=== PATIENT | female | born 1965 | race Caucasian/White ===

== ENCOUNTER 2020-07-04 20:02 | Inpatient (IN) ==
[2020-07-04] MEDS ORDERED: fentaNYL 100 MCG/2 ML VIAL IV ONE (20:22)
[2020-07-04] MEDS ORDERED: FUROSEMIDE 40 MG/4 ML VIAL IV ONE (20:23)
[2020-07-04 20:56] LABS: POC Creatinine 1.9 mg/dl (0.6-1.1)
[2020-07-04 22:15] LABS: INR 1.4 (0.9-1.1); Prothrombin Time 17.5 sec (11.9-14.5)
[2020-07-04 22:32] LABS: ALT/SGPT 50 U/l (0-40); AST/SGOT 62 U/l (0-37); Albumin 3.1 gm/dL (3.2-5.2); Albumin/Globulin Ratio 0.8 (1.0-2.3); Alkaline Phosphatase 194 U/L (39-117); Bilirubin,Total 3.5 mg/dL (0.0-1.0); Blood Urea Nitrogen 45 mg/dl (6-20); Calcium 8.5 mg/dl (8.6-10.4); Carbon Dioxide 17 mmol/L (22-30); Creatine Kinase 101 IU/L (24-170); Globulin 3.7 gm/dL (2.2-3.7); Glomerular Filtration Rate 31; Glucose 294 mg/dL (70-105)
[2020-07-04 22:32] LABS: Appearance,Urine CLEAR; Bilirubin,Urine NEG (NEG); Color,Urine AMBER; Culture Indicated,Urine NO; Glucose,Urine (UA) 50 mg/dL (NEG); Ketones,Urine NEG (NEG); Leukocyte Esterase,Urine NEG /uL (NEG); Nitrate,Urine NEG (NEG); Protein,Urine NEG (NEG); Specific Gravity,Urine 1.017 (1.000-1.035); Urine Blood NEG mg/dL (<0.03)
[2020-07-04 22:39] LABS: Chloride 87 mmol/L (96-108)
--- NOTE | 2020-07-04 22:55 | Emergency Department Note ---
HPI General Chief complaint: Rib Pain Stated complaint: sternum pain and UTI Time Seen by Provider: 07/04/20 20:07 Source: patient Mode of arrival: ambulatory Limitations: no limitations History of Present Illness HPI Narrative: Narrative: 55-year-old female with known cirrhosis liver comes in complaining of couple of issues. She was seen a week ago after a fall and concerned that she had fractured her ribs or sternum. This has not improved and now she is having some trouble breathing requiring oxygen. She is currently afebrile but she is having some confusion. I reviewed the note from that visit on 06/27/2020-her left knee was also x-rayed which was negative. She is still having some swelling at that knee. The second issue is that she was diagnosed with a UTI 2 days ago at an outside hospital-there is some concern that she is not getting better from this either. She is somnolent but arousable; somewhat confused. Her sister brought her in and corroborates her story Related Data Home Medications Medication Instructions Recorded Confirmed Cyanocobalamin 1,000 mcg IM MONTHLY 08/26/15 07/04/20 amlodipine [Norvasc] 10 mg PO DAILY 08/26/15 07/04/20 gabapentin 100 mg PO BID 08/26/15 07/04/20 metoprolol tartrate 25 mg PO BID 08/26/15 07/04/20 omeprazole [Prilosec] 40 mg PO DAILY 08/26/15 07/04/20 potassium chloride [Klor-Con M20] 20 meq PO DAILY 08/26/15 07/04/20 insulin lispro [HumaLOG] 1 unit SQ CONT 07/22/17 07/04/20 fluoxetine 40 mg PO DAILY 02/11/19 07/04/20 furosemide 40 mg PO BID 02/11/19 07/04/20 oxycodone 15 mg PO BID PRN 02/11/19 07/04/20 spironolactone 50 mg PO DAILY 02/11/19 07/04/20 Previous Rx's Medication Instructions Recorded Xifaxan 550 mg PO BID #60 tab 07/13/16 hydrocodone-acetaminophen 1 tab PO Q6HP PRN #20 tab 12/02/17 hydrocodone-acetaminophen 1 tab PO Q4H PRN #14 tab 06/27/20 Allergies Allergy/AdvReac Type Severity Reaction Status Date / Time No Known Drug Allergies Allergy Verified 07/04/20 20:08 Review of Systems ROS ROS Narrative: Narrative: All systems ED: reviewed and negative except as stated. [facility] Narrative Patient History Narrative: Narrative: Medical/Surgical/Family History All Active Problems Sepsis (Acute) Systemic inflammatory response syndrome (Acute) Acute cholecystitis (Acute) Cellulitis of right lower leg (Acute) Cellulitis (Acute) Altered mental status (Acute) Liver cirrhosis (Acute) Hepatitis C (Acute) Confusion (Acute) Community acquired pneumonia (Acute) Hepatic encephalopathy (Acute) Bronchitis (Acute) Congestive heart failure (Acute) Heart failure with acute decompensation, type unknown (Acute) Acute exacerbation of chronic obstructive airways disease (Acute) Cor pulmonale (Acute) Acute worsening of stage 3 chronic kidney disease (Acute) Cirrhosis (Acute) Cellulitis of right foot (Acute) Hepatic encephalopathy (Acute) Edema (Acute) Contusion of rib on left side (Acute) Foot fracture (Acute) Hyperglycemia (Acute) Foot pain (Acute) Lower extremity edema (Acute) Acute postoperative pain of left foot (Acute) Postoperative bleeding from incision (Acute) Visit for wound check (Acute) Left knee sprain (Acute) Chest wall contusion (Acute) Acute hyponatremia (Acute) Cirrhosis (Acute) CHF (congestive heart failure) (Acute) Fracture of rib of left side (Acute) Acute UTI (Acute) Thrombocytopenia (Acute) Acute confusion (Acute) Medical History Acute cholecystitis (Acute) Acute exacerbation of chronic obstructive airways disease (Acute) Acute worsening of stage 3 chronic kidney disease (Acute) Altered mental status (Acute) Bronchitis (Acute) Cellulitis (Acute) Cellulitis of right lower leg (Acute) Cirrhosis (Acute) Community acquired pneumonia (Acute) Confusion (Acute) Congestive heart failure (Acute) Cor pulmonale (Acute) Heart failure with acute decompensation, type unknown (Acute) Hepatic encephalopathy (Acute) Hepatitis C (Acute) Liver cirrhosis (Acute) Sepsis (Acute) Systemic inflammatory response syndrome (Acute) Social History Smoking Status: Current every day smoker Exam Narrative Narrative: Narrative: Obese female no acute distress. Normocephalic atraumatic. Conjunctive a without injection, sclerae white nonicteric. She is somnolent but will open her eyes up spontaneously. No nasal discharge or congestion. Oropharynx is pink and moist. Neck is supple without lymphadenopathy thyromegaly or carotid bruit. Heart is regular rate and rhythm. Her sternum ar ea is tender. Her left ribs are tender as well on the anterior portion. Lungs are basically clear to auscultation but it does not seem like she is moving air well. No wheezing or rales. She is requiring nasal cannula oxygen now 2 L. Abdomen is soft nontender nondistended. I looked at her left knee and has some mild edema compared to the right but it is not significantly more tender. She is able to move it normally. General Limitations: no limitations Course Vital Signs Vital signs: Vital Signs Temperature 98.2 F 07/04/20 20:03 Pulse Rate 80 07/04/20 20:03 Respiratory Rate 18 07/04/20 20:03 Blood Pressure 124/55 07/04/20 20:03 Pulse Oximetry (%) 90 07/04/20 20:03 Temperature 97.7 F 07/05/20 08:00 Pulse Rate 90 07/05/20 08:00 Respiratory Rate 21 07/05/20 08:00 Blood Pressure 160/98 07/05/20 08:00 Pulse Oximetry (%) 97 07/05/20 08:00 [facility] MDM Narrative Medical decision making narrative: Narrative: Lab Data Lab results reviewed: Yes I reviewed the patient's lab results. Lab results narrative: Initial work-up ordered with CT scan of the chest without contrast was her creatinine was up. Will check laboratory and give her oxygen. We will give her a dose of furosemide if she is having trouble breathing and she has a history of CHF. Also will give fentanyl for pain for likely rib fractures not seen on previous chest x-ray Urinalysis shows partially treated infection on nitrofurantoin-likely should continue this Hyponatremia is noted along with elevated creatinine. She will need admission to correct the hyponatremia as well as to track her kidney function. Noted new worsening thrombocytopenia Rib fractures are noted 5 through 9 on the left but no sternal fractures on final read by Dr. Keating I discussed findings with the patient and her sister. There is enough going on here that I think it is prudent that she come in the hospital-particular that she may have the beginnings of pneumonia from the rib fracture, significant hyponatremia in the setting of cirrhosis and CHF, and new thrombocytopenia. I discussed the situation with Dr. Grover, our hospitalist who agreed to accept the patient for further care and evaluation here but he wanted me to get a CT scan of her head. This is accomplished and negative. She was admitted to the hospitalist service Result diagrams: 07/05/20 05:10 07/05/20 05:10 Labs: Lab Results 07/04/20 07/04/20 07/04/20 Range/Units 20:24 20:24 20:53 WBC 7.1 (4.50-11.00) K/mcL RBC 4.44 (3.59-5.38) M/mcL Hgb 13.8 (11.2-15.7) g/dL Hct 40.8 (34.1-44.9) % MCV 91.9 (80.0-100.0) fL MCH 31.1 (26.0-34.0) pg MCHC 33.8 (31.0-36.0) g/dL RDW 19.9 H (11.5-14.5) % Plt Count 37 L* (140-440) K/mcL MPV Not Reportable Gran % 87.6 H (38.0-78.0) % Lymph % (Auto) 5.7 L (15.5-49.0) % Casey % (Auto) 5.9 (1.0-12.0) % Eos % (Auto) 0.4 (0.0-7.0) % Baso % (Auto) 0.4 (0.0-2.0) % Gran # 6.19 (1.80-8.00) K/mcL Lymph # (Auto) 0.40 L (1.50-4.80) K/mcL Casey # (Auto) 0.42 (0.10-0.90) K/mcL Eos # (Auto) 0.03 (0.00-0.70) K/mcL Baso # (Auto) 0.03 (0.00-0.30) K/mcL PT (11.9-14.5) sec INR (0.9-1.1) Sodium (133-145) mmol/L Potassium (3.3-5.1) mmol/L Chloride (96-108) mmol/L Carbon Dioxide (22-30) mmol/L Anion Gap (8-16) BUN (6-20) mg/dl Creatinine (0.6-1.1) mg/dl POC Creatinine (0.6-1.1) mg/dl GFR Calculation Glucose (70-105) mg/dL Hemoglobin A1c 10.1 H (4.0-6.0) % HGB Estim Average Glucose 243 mg/dL Calcium (8.6-10.4) mg/dl Total Bilirubin (0.0-1.0) mg/dL AST (0-37) U/l ALT (0-40) U/l Alkaline Phosphatase (39-117) U/L Ammonia (11-51) umol/L Total Creatine Kinase (24-170) IU/L Troponin T (0-0.03) ng/ml NT-Pro-B Natriuret Pep (0-125) pg/ml Total Protein (5.9-8.4) gm/dL Albumin (3.2-5.2) gm/dL Globulin (2.2-3.7) gm/dL Albumin/Globulin Ratio (1.0-2.3) Lipase (7-60) U/L Procalcitonin 1.90 (<0.10) ng/mL Urine Color Urine Appearance Urine pH (5.0-9.0) Ur Specific R[place] (1.000-1.035) Urine Protein (NEG) mg/dL Urine Glucose (UA) (NEG) mg/dL Urine Ketones (NEG) mg/dL Urine Occult Blood (<0.03) mg/dL Urine Nitrate (NEG) Urine Bilirubin (NEG) mg/dL Urine Urobilinogen (NEG) mg/dL Ur Leukocyte Esterase (NEG) /uL Ur Culture Indicated? 07/04/20 07/04/20 07/04/20 Range/Units 20:53 20:53 20:53 WBC (4.50-11.00) K/mcL RBC (3.59-5.38) M/mcL Hgb (11.2-15.7) g/dL Hct (34.1-44.9) % MCV (80.0-100.0) fL MCH (26.0-34.0) pg MCHC (31.0-36.0) g/dL RDW (11.5-14.5) % Plt Count (140-440) K/mcL MPV Gran % (38.0-78.0) % Lymph % (Auto) (15.5-49.0) % Casey % (Auto) (1.0-12.0) % Eos % (Auto) (0.0-7.0) % Baso % (Auto) (0.0-2.0) % Gran # (1.80-8.00) K/mcL Lymph # (Auto) (1.50-4.80) K/mcL Casey # (Auto) (0.10-0.90) K/mcL Eos # (Auto) (0.00-0.70) K/mcL Baso # (Auto) (0.00-0.30) K/mcL PT (11.9-14.5) sec INR (0.9-1.1) Sodium 119 L* (133-145) mmol/L Potassium 5.2 H (3.3-5.1) mmol/L Chloride 87 L (96-108) mmol/L Carbon Dioxide 17 L (22-30) mmol/L Anion Gap 15.0 (8-16) BUN 45 H (6-20) mg/dl Creatinine 1.8 H (0.6-1.1) mg/dl POC Creatinine 1.9 H (0.6-1.1) mg/dl GFR Calculation 31 Glucose 294 H (70-105) mg/dL Hemoglobin A1c (4.0-6.0) % HGB Estim Average Glucose mg/dL Calcium 8.5 L (8.6-10.4) mg/dl Total Bilirubin 3.5 H (0.0-1.0) mg/dL AST 62 H (0-37) U/l ALT 50 H (0-40) U/l Alkaline Phosphatase 194 H (39-117) U/L Ammonia 43 (11-51) umol/L Total Creatine Kinase 101 (24-170) IU/L Troponin T < 0.01 (0-0.03) ng/ml NT-Pro-B Natriuret Pep 1220.0 H (0-125) pg/ml Total Protein 6.8 (5.9-8.4) gm/dL Albumin 3.1 L (3.2-5.2) gm/dL Globulin 3.7 (2.2-3.7) gm/dL Albumin/Globulin Ratio 0.8 L (1.0-2.3) Lipase 28 (7-60) U/L Procalcitonin (<0.10) ng/mL Urine Color Urine Appearance Urine pH (5.0-9.0) Ur Specific R[place] (1.000-1.035) Urine Protein (NEG) mg/dL Urine Glucose (UA) (NEG) mg/dL Urine Ketones (NEG) mg/dL Urine Occult Blood (<0.03) mg/dL Urine Nitrate (NEG) Urine Bilirubin (NEG) mg/dL Urine Urobilinogen (NEG) mg/dL Ur Leukocyte Esterase (NEG) /uL Ur Culture Indicated? 07/04/20 07/04/20 Range/Units 20:53 21:40 WBC (4.50-11.00) K/mcL RBC (3.59-5.38) M/mcL Hgb (11.2-15.7) g/dL Hct (34.1-44.9) % MCV (80.0-100.0) fL MCH (26.0-34.0) pg MCHC (31.0-36.0) g/dL RDW (11.5-14.5) % Plt Count (140-440) K/mcL MPV Gran % (38.0-78.0) % Lymph % (Auto) (15.5-49.0) % Casey % (Auto) (1.0-12.0) % Eos % (Auto) (0.0-7.0) % Baso % (Auto) (0.0-2.0) % Gran # (1.80-8.00) K/mcL Lymph # (Auto) (1.50-4.80) K/mcL Casey # (Auto) (0.10-0.90) K/mcL Eos # (Auto) (0.00-0.70) K/mcL Baso # (Auto) (0.00-0.30) K/mcL PT 17.5 H (11.9-14.5) sec INR 1.4 H (0.9-1.1) Sodium (133-145) mmol/L Potassium (3.3-5.1) mmol/L Chloride (96-108) mmol/L Carbon Dioxide (22-30) mmol/L Anion Gap (8-16) BUN (6-20) mg/dl Creatinine (0.6-1.1) mg/dl POC Creatinine (0.6-1.1) mg/dl GFR Calculation Glucose (70-105) mg/dL Hemoglobin A1c (4.0-6.0) % HGB Estim Average Glucose mg/dL Calcium (8.6-10.4) mg/dl Total Bilirubin (0.0-1.0) mg/dL AST (0-37) U/l ALT (0-40) U/l Alkaline Phosphatase (39-117) U/L Ammonia (11-51) umol/L Total Creatine Kinase (24-170) IU/L Troponin T (0-0.03) ng/ml NT-Pro-B Natriuret Pep (0-125) pg/ml Total Protein (5.9-8.4) gm/dL Albumin (3.2-5.2) gm/dL Globulin (2.2-3.7) gm/dL Albumin/Globulin Ratio (1.0-2.3) Lipase (7-60) U/L Procalcitonin (<0.10) ng/mL Urine Color Jessica Urine Appearance Clear Urine pH 5.0 (5.0-9.0) Ur Specific [place] 1.017 (1.000-1.035) Urine Protein Neg (NEG) mg/dL Urine Glucose (UA) 50 A (NEG) mg/dL Urine Ketones Neg (NEG) mg/dL Urine Occult Blood Neg (<0.03) mg/dL Urine Nitrate Neg (NEG) Urine Bilirubin Neg (NEG) mg/dL Urine Urobilinogen 2.0 A (NEG) mg/dL Ur Leukocyte Esterase Neg (NEG) /uL Ur Culture Indicated? No Radiology Data Radiology results reviewed: Yes I reviewed the patient's radiology results. Radiology results narrative: CT scan of the chest without contrast shows several rib fractures on the left . Noted dilated gallbladder. Severe cirrhosis of the liver. Possible pneumonia with groundglass opacity CT scan of the head without contrast is negative for acute abnormality Discharge Plan Patient/Caregiver Discharge Instructions Pt seen by HOME CARE GIVER/PA only: No Clinical Impression: Acute hyponatremia, Acute UTI, Thrombocytopenia, Acute confusion Cirrhosis Qualifiers: Hepatic cirrhosis type: unspecified hepatic cirrhosis Ascites presence: with ascites Qualified Code(s): K74.60 - Unspecified cirrhosis of liver CHF (congestive heart failure) Qualifiers: Heart failure type: unspecified Heart failure chronicity: acute on chronic Qualified Code(s): I50.9 - Heart failure, unspecified Fracture of rib of left side Qualifiers: Encounter type: initial encounter Rib fracture type: multiple ribs Fracture type: closed Qualified Code(s): S22.42XA - Multiple fractures of ribs, left side, initial encounter for closed fracture Patient Disposition: Xfer As Inpt ([facility]) Condition: Fair Discharge Date/Time: 07/05/20 00:49
[2020-07-04] MEDS ORDERED: ONDANSETRON 4 MG/2 ML VIAL IV PRN (23:09)
[2020-07-04] MEDS ORDERED: CALCIUM GLUCONATE 4.65 MEQ in DEXTROSE 5% IN WATER 50 ML IV ONE (23:22)
[2020-07-04] MEDS ORDERED: DEXTROSE 50% 50 ML VIAL IV PRN (23:22)
[2020-07-04] MEDS ORDERED: IPRATROPIUM/ALBUTEROL 3 ML AMPUL.NEB NEB PRN (23:22)
[2020-07-04] MEDS ORDERED: DEXTROSE 31 GM ORAL.SUSP PO PRN (23:22)
[2020-07-04 23:23] LABS: Hematocrit 40.8 % (34.1-44.9); Hemoglobin 13.8 g/dL (11.2-15.7); Mean Cell Volume 91.9 fL (80.0-100.0); Mean Corpuscular HGB Conc 33.8 g/dL (31.0-36.0); Platelet Count 37 K/mcL (140-440); RBC 4.44 M/mcL (3.59-5.38); Red Cell Distribution Width 19.9 % (11.5-14.5); WBC 7.1 K/mcL (4.50-11.00)
[2020-07-04] MEDS ORDERED: SODIUM POLYSTYRENE SULFONATE 15 GM/60 ML SUSPENSION PO ONE (23:26)
[2020-07-04] MEDS ORDERED: HYDROmorphone 0.5 MG/0.5 ML SYRINGE IV PRN (23:26)
[2020-07-04 23:29] LABS: Basophils # (Auto) 0.03 K/mcL (0.00-0.30); Basophils % (Auto) 0.4 % (0.0-2.0); Eosinophils # (Auto) 0.03 K/mcL (0.00-0.70); Eosinophils % (Auto) 0.4 % (0.0-7.0); Granulocytes % (Auto) 87.6 % (38.0-78.0); Lymphocytes % (Auto) 5.7 % (15.5-49.0); Monocytes # (Auto) 0.42 K/mcL (0.10-0.90); Monocytes % (Auto) 5.9 % (1.0-12.0)
[2020-07-05] MEDS ORDERED: IPRATROPIUM/ALBUTEROL 3 ML AMPUL.NEB NEB PRN (00:28)
[2020-07-05] MEDS ORDERED: ONDANSETRON 4 MG/2 ML VIAL IV PRN (00:28)
[2020-07-05] MEDS ORDERED: DEXTROSE 31 GM ORAL.SUSP PO PRN (00:28)
[2020-07-05] MEDS ORDERED: HYDROmorphone 0.5 MG/0.5 ML SYRINGE IV PRN (00:28)
[2020-07-05] MEDS ORDERED: OXYCODONE 15 MG PO PRN (00:28)
[2020-07-05] MEDS ORDERED: CALCIUM GLUCONATE 4.65 MEQ in DEXTROSE 5% IN WATER 50 ML IV ONE (00:28)
[2020-07-05] MEDS ORDERED: DEXTROSE 50% 50 ML VIAL IV PRN (00:28)
[2020-07-05] MEDS ORDERED: SODIUM POLYSTYRENE SULFONATE 15 GM/60 ML SUSPENSION PO ONE ×2 (00:28→09:43)
[2020-07-05 01:18] LABS: Hemoglobin A1C 10.1 % HGB (4.0-6.0)
[2020-07-05] MEDS ORDERED: CALCIUM GLUCONATE 4.65 MEQ/10 ML VIAL ONE (01:42)
[2020-07-05] MEDS ORDERED: SODIUM POLYSTYRENE SULFONATE 15 GM/60 ML SUSPENSION ONE (01:43)
[2020-07-05] MEDS ORDERED: oxyCODONE HCL 5 MG TABLET PO SCH (02:02)
[2020-07-05] MEDS ORDERED: oxyCODONE HCL 5 MG TABLET PO ONE (02:03)
[2020-07-05] MEDS ORDERED: oxyCODONE HCL 5 MG TABLET PO PRN ×2 (02:06→06:15)
[2020-07-05] MEDS ORDERED: 0.9 % SODIUM CHLORIDE 10 ML SYRINGE IV SCH ×2 (06:00)
--- NOTE | 2020-07-05 06:37 | Cat Scan Report ---
INDICATION: confusion COMPARISON: None. TECHNIQUE: Axial noncontrast-enhanced images through the brain. Sagittally and coronally reformatted images. FINDINGS: Examination was initially interpreted by [facility] Cerebral hemispheres:Negative. No intra-axial abnormality. No intra-axial hematoma. No localized mass effect. Brain volume is within normal limits. No hydrocephalus Brainstem and cerebellum:No intra-axial abnormality Extra-axial:No acute hemorrhage. No subdural or epidural hematoma. No subarachnoid hemorrhage. Basilar cisterns are normal Calvarial:No calvarial fracture. No lytic lesion Temporal bones are negative. No destructive lesions Soft tissue, orbits, sinuses:9 mm retention cyst or polyp in the left maxillary sinus. Paranasal sinuses are otherwise negative. Facial soft tissues are negative IMPRESSION: Negative noncontrast enhanced brain CT scan. No intracranial abnormality. The exam was performed using radiation dose optimization techniques including, but not limited to, automated exposure control, adjustment of the mA and/or kV according to patient size and use of iterative reconstruction technique. Interpreted and Authenticated by: Mike Keating 07/05/20
[2020-07-05 06:42] LABS: C-Reactive Protein 15.8 mg/dl (0.0-0.8)
[2020-07-05 06:43] LABS: ALT/SGPT 39 U/l (0-40); AST/SGOT 50 U/l (0-37); Albumin 2.6 gm/dL (3.2-5.2); Albumin/Globulin Ratio 0.8 (1.0-2.3); Alkaline Phosphatase 129 U/L (39-117); Bilirubin,Total 3.5 mg/dL (0.0-1.0); Blood Urea Nitrogen 46 mg/dl (6-20); Calcium 8.1 mg/dl (8.6-10.4); Carbon Dioxide 19 mmol/L (22-30); Chloride 88 mmol/L (96-108); Globulin 3.1 gm/dL (2.2-3.7); Glomerular Filtration Rate 33; Glucose 297 mg/dL (70-105); Phosphorous 3.5 mg/dL (2.7-4.5)
[2020-07-05 06:55] LABS: Ferritin 295.9 ng/ml (13-150)
--- NOTE | 2020-07-05 07:00 | Cat Scan Report ---
INDICATION: chest pain and CHF COMPARISON: Previous chest x-rays dated 06/27/2020, 12/21/2016, 11/04/2016 TECHNIQUE: Axial noncontrast enhanced images through the chest. Sagittally and coronally reformatted images. MIP reformatted images. FINDINGS: Examination was initially interpreted by [facility]. Very poor quality examination as this patient was unable to suspend respiration or hold still. Follow-up chest x-ray is recommended. Lungs:There are bilateral patchy groundglass infiltrates. These are not well-visualized due to patient motion. Infection is possible viral pneumonia should be considered. Mild left lower lobe dependent atelectasis. Mediastinum, vascular:No pathologic mediastinal or hilar adenopathy Thoracic aorta is negative. No aneurysmal dilatation Heart:No significant cardiomegaly. No pericardial effusion. There is severe coronary artery calcification Pleura:Small left pleural effusion. No significant pneumothorax. Axilla, supraclavicular regions, chest wall:No axillary or supraclavicular adenopathy. Musculoskeletal:No thoracic compression fractures. No sternal fracture. There are fractures of the left second through fifth ribs anteriorly. Upper Abdomen: Liver is abnormal consistent with severe cirrhosis. No discrete mass identified. The gallbladder appears distended and is dense. No definite gallbladder wall thickening. No pericholecystic fluid. No dilated bile ducts. There is splenomegaly. Spleen measures 19 cm in AP diameter. There are abdominal wall varices. There is at least mild ascites. IMPRESSION: 1. Poor quality chest CT scan due to patient motion and inability to suspend respiration 2. Bilateral patchy groundglass infiltrates. Left basilar atelectasis. Pneumonia including viral pneumonia is possible 3. Fractures of the left second through fifth ribs anteriorly. No pneumothorax. There is a very small left pleural effusion. 4. Severe cirrhosis. There is at least small ascites. There is marked splenomegaly and there are abdominal wall varices 5. Distended and dense gallbladder. Ultrasound may be helpful. The exam was performed using radiation dose optimization techniques including, but not limited to, automated exposure control, adjustment of the mA and/or kV according to patient size and use of iterative reconstruction technique. Interpreted and Authenticated by: Mike Keating 07/05/20
[2020-07-05] MEDS ORDERED: PANTOPRAZOLE 40 MG TABLET PO SCH (07:30)
[2020-07-05] MEDS ORDERED: INSULIN LISPRO 1 UNIT/0.01 ML UNIT SQ SCH (07:30)
[2020-07-05] MEDS ORDERED: OMEPRAZOLE 20 MG CAPSULE PO SCH (07:30)
[2020-07-05 07:35] LABS: Basophils # (Auto) 0.02 K/mcL (0.00-0.30); Basophils % (Auto) 0.3 % (0.0-2.0); Eosinophils # (Auto) 0.01 K/mcL (0.00-0.70); Eosinophils % (Auto) 0.2 % (0.0-7.0); Granulocytes % (Auto) 86.9 % (38.0-78.0); Hematocrit 35.4 % (34.1-44.9); Lymphocytes # (Auto) 0.23 K/mcL (1.50-4.80); Lymphocytes % (Auto) 3.7 % (15.5-49.0); Mean Cell Volume 90.1 fL (80.0-100.0); Mean Corpuscular HGB Conc 33.9 g/dL (31.0-36.0); Monocytes # (Auto) 0.55 K/mcL (0.10-0.90); Monocytes % (Auto) 8.9 % (1.0-12.0); Platelet Count 35 K/mcL (140-440); RBC 3.93 M/mcL (3.59-5.38); Red Cell Distribution Width 19.9 % (11.5-14.5); WBC 6.2 K/mcL (4.50-11.00)
--- NOTE | 2020-07-05 08:57 | Ultrasound Report ---
INDICATION: cirrhosis TECHNIQUE: Grayscale and color flow Doppler spectral imaging COMPARISON: Previous ultrasound dated 06/01/2019 and 08/27/2016. Previous chest CT scan dated 07/04/2020 FINDINGS: Pancreas:Poorly visualized. Gallbladder:Gallbladder is enlarged. Gallbladder measures approximately 7.6 x 1.3 cm. Gallbladder appears to be filled with biliary sludge and calculi. Appearance is essentially unchanged. No definite gallbladder wall thickening or pericholecystic fluid. Bile Ducts:No intrahepatic bile duct dilatation. Common bile duct is not well-visualized Liver:Liver is abnormal. Liver parenchyma is heterogeneous. There is a nodular contour consistent with cirrhosis. No detectable mass. There is mild ascites Spleen:Spleen is enlarged. Spleen measures 19.4 x 6.7 x 17.2 cm. No focal mass. Portal vein measures 1.7 cm. This is enlarged and consistent with portal hypertension. There is predominantly antegrade flow. Kidneys:Kidneys are not well-visualized. Vascular:Not well visualized IMPRESSION: 1. Limited evaluation 2. Distended gallbladder filled with echogenic material and stones. Appearance is essentially unchanged 3. Findings consistent with cirrhosis. No hepatic mass 4. Splenomegaly and mildly dilated portal vein 5. Mild ascites Interpreted and Authenticated by: Mike Keating 07/05/20
[2020-07-05] MEDS ORDERED: GABAPENTIN 100 MG CAPSULE PO SCH (09:00)
[2020-07-05] MEDS ORDERED: RIFAXIMIN 550 MG TABLET PO SCH (09:00)
[2020-07-05] MEDS ORDERED: LACTULOSE 20 GM/30 ML ORAL.SOL PO SCH ×3 (09:00)
[2020-07-05] MEDS ORDERED: METOPROLOL TARTRATE 50 MG TABLET PO SCH (09:00)
[2020-07-05] MEDS ORDERED: SPIRONOLACTONE 25 MG TABLET PO SCH (09:00)
[2020-07-05] MEDS ORDERED: amLODIPine 10 MG TABLET PO SCH (09:00)
[2020-07-05] MEDS ORDERED: HEPARIN 5,000 UNIT/ML VIAL SQ SCH ×2 (09:00)
[2020-07-05] MEDS ORDERED: FLUoxetine HCL 20 MG CAPSULE PO SCH (09:00)
--- NOTE | 2020-07-05 09:36 | Internal Med History&Physical ---
HPI History of Present Illness Patient information: Note initiated : 07/05/20 at 9:23 am Service Date, if different from initiated Date: [] Patient: Deloris Sarah a 55 y/o F admitted on 07/05/20 for sternum pain and UTI. Chief Complaint: [sob and confusion] History of present illness: Ms. Sarah is a 55 year old F with a hx of of hepatitis C, liver cirrhosis, CHF, COPD, diabetes and CKD who was brought to the ER due to shortness of breath and confusion. Patient cannot give her medical history. Patient has been having shortness of breath but she was noted she is confused. She fell at the home. After that she developed left rib pain. She has a hepatitis C and liver cirrhosis. She was diagnosed with UTI 2 days ago, which was not treated with antibiotics. In the ER, she was found to have oxygen desaturation. Chest imaging showed left rib fracture and possible bilateral viral pneumonia. Review of Systems ROS unobtainable: due to mental status [facility] Medical History Acute cholecystitis (Acute) Acute exacerbation of chronic obstructive airways disease (Acute) Acute worsening of stage 3 chronic kidney disease (Acute) Altered mental status (Acute) Bronchitis (Acute) Cellulitis (Acute) Cellulitis of right lower leg (Acute) Cirrhosis (Acute) Community acquired pneumonia (Acute) Confusion (Acute) Congestive heart failure (Acute) Cor pulmonale (Acute) Heart failure with acute decompensation, type unknown (Acute) Hepatic encephalopathy (Acute) Hepatitis C (Acute) Liver cirrhosis (Acute) Sepsis (Acute) Systemic inflammatory response syndrome (Acute) Social History smoking status: Current every day smoker MEDS/ALLERGIES Home Medications and Allergies Home Medications Medication Instructions Recorded Confirmed Type Cyanocobalamin 1,000 mcg IM MONTHLY 08/26/15 07/04/20 History amlodipine [Norvasc] 10 mg PO DAILY 08/26/15 07/04/20 History gabapentin 100 mg PO BID 08/26/15 07/04/20 History metoprolol tartrate 25 mg PO BID 08/26/15 07/04/20 History omeprazole [Prilosec] 40 mg PO DAILY 08/26/15 07/04/20 History potassium chloride [Klor-Con M20] 20 meq PO DAILY 08/26/15 07/04/20 History Xifaxan 550 mg PO BID #60 tab 07/13/16 07/04/20 Rx insulin lispro [HumaLOG] 1 unit SQ CONT 07/22/17 07/04/20 History hydrocodone-acetaminophen 1 tab PO Q6HP PRN #20 tab 12/02/17 07/04/20 Rx fluoxetine 40 mg PO DAILY 02/11/19 07/04/20 History furosemide 40 mg PO BID 02/11/19 07/04/20 History oxycodone 15 mg PO BID PRN 02/11/19 07/04/20 History spironolactone 50 mg PO DAILY 02/11/19 07/04/20 History hydrocodone-acetaminophen 1 tab PO Q4H PRN #14 tab 06/27/20 07/04/20 Rx Allergies Allergy/AdvReac Type Severity Reaction Status Date / Time No Known Drug Allergies Allergy Verified 07/04/20 20:08 EXAM Constitutional Vitals: Temp Pulse Resp BP Pulse Ox 97.7 F 96 H 22 135/61 92 07/05/20 08:00 07/05/20 09:00 07/05/20 09:00 07/05/20 09:00 07/05/20 09:00 Additional findings Additional findings: General -lethargic, somnolence Eyes - PERRLA, EOM intact ENT no rhinorrhea, no noticeable or palpable swelling, no redness or rash around throat or on face Neck supple, no JVD, no thyromegaly Respiratory: Lungs -diminished breathing sound, no wheezing or crackles. Cardiovascular - RRR no m/r/g, GI - Normal bowel sounds, no distended, soft. Extremeties - No cyanosis or clubbing Hemo/lymphatic/immune no lymphadenopathy Neurological lethargic, no focal neurological deficits. Psychiatry flat affect DATA Data Completed and Pending Labs on day of discharge: Labs from last 24 hours 07/05/20 07/05/20 07/05/20 05:10 05:10 05:10 WBC RBC Hgb Hct MCV MCH MCHC RDW Plt Count MPV Gran % Lymph % (Auto) [place] % (Auto) Eos % (Auto) Baso % (Auto) Gran # Lymph # (Auto) [place] # (Auto) Eos # (Auto) Baso # (Auto) Differential Comment PT INR D-Dimer 12.37 H VBG Lactic Acid 2.6 H Sodium Potassium Chloride Carbon Dioxide Anion Gap BUN Creatinine POC Creatinine GFR Calculation Glucose Hemoglobin A1c Estim Average Glucose Calcium Phosphorus Magnesium Ferritin 295.9 H Total Bilirubin AST ALT Alkaline Phosphatase Ammonia Total Creatine Kinase Troponin T C-Reactive Protein 15.8 H NT-Pro-B Natriuret Pep Total Protein Albumin Globulin Albumin/Globulin Ratio Lipase Procalcitonin Urine Color Urine Appearance Urine pH Ur Specific [place] Urine Protein Urine Glucose (UA) Urine Ketones Urine Occult Blood Urine Nitrate Urine Bilirubin Urine Urobilinogen Ur Leukocyte Esterase Ur Culture Indicated? COVID-19 PCR SARS-CoV-2 (PCR) 07/05/20 07/05/20 07/05/20 05:10 05:10 02:15 WBC 6.2 RBC 3.93 Hgb 12.0 Hct 35.4 MCV 90.1 MCH 30.5 MCHC 33.9 RDW 19.9 H Plt Count 35 L* MPV TNP Gran % 86.9 H Lymph % (Auto) 3.7 L [place] % (Auto) 8.9 Eos % (Auto) 0.2 Baso % (Auto) 0.3 Gran # 5.40 Lymph # (Auto) 0.23 L [place] # (Auto) 0.55 Eos # (Auto) 0.01 Baso # (Auto) 0.02 Differential Comment Comment PT INR D-Dimer VBG Lactic Acid Sodium 123 L Potassium 5.2 H Chloride 88 L Carbon Dioxide 19 L Anion Gap 16.0 BUN 46 H Creatinine 1.7 H POC Creatinine GFR Calculation 33 Glucose 297 H Hemoglobin A1c Estim Average Glucose Calcium 8.1 L Phosphorus 3.5 Magnesium 1.6 Ferritin Total Bilirubin 3.5 H AST 50 H ALT 39 Alkaline Phosphatase 129 H Ammonia Total Creatine Kinase Troponin T C-Reactive Protein NT-Pro-B Natriuret Pep Total Protein 5.7 L Albumin 2.6 L Globulin 3.1 Albumin/Globulin Ratio 0.8 L Lipase Procalcitonin Urine Color Urine Appearance Urine pH Ur Specific [place] Urine Protein Urine Glucose (UA) Urine Ketones Urine Occult Blood Urine Nitrate Urine Bilirubin Urine Urobilinogen Ur Leukocyte Esterase Ur Culture Indicated? COVID-19 PCR SARS-CoV-2 (PCR) Pending 07/05/20 07/04/20 07/04/20 02:15 21:40 20:53 WBC RBC Hgb Hct MCV MCH MCHC RDW Plt Count MPV Gran % Lymph % (Auto) [place] % (Auto) Eos % (Auto) Baso % (Auto) Gran # Lymph # (Auto) [place] # (Auto) Eos # (Auto) Baso # (Auto) Differential Comment PT 17.5 H INR 1.4 H D-Dimer VBG Lactic Acid Sodium Potassium Chloride Carbon Dioxide Anion Gap BUN Creatinine POC Creatinine GFR Calculation Glucose Hemoglobin A1c Estim Average Glucose Calcium Phosphorus Magnesium Ferritin Total Bilirubin AST ALT Alkaline Phosphatase Ammonia Total Creatine Kinase Troponin T C-Reactive Protein NT-Pro-B Natriuret Pep Total Protein Albumin Globulin Albumin/Globulin Ratio Lipase Procalcitonin Urine Color Jessica Urine Appearance Clear Urine pH 5.0 Ur Specific [place] 1.017 Urine Protein Neg Urine Glucose (UA) 50 A Urine Ketones Neg Urine Occult Blood Neg Urine Nitrate Neg Urine Bilirubin Neg Urine Urobilinogen 2.0 A Ur Leukocyte Esterase Neg Ur Culture Indicated? No COVID-19 PCR Covid-19 negative SARS-CoV-2 (PCR) 07/04/20 07/04/20 07/04/20 20:53 20:53 20:53 WBC RBC Hgb Hct MCV MCH MCHC RDW Plt Count MPV Gran % Lymph % (Auto) [place] % (Auto) Eos % (Auto) Baso % (Auto) Gran # Lymph # (Auto) [place] # (Auto) Eos # (Auto) Baso # (Auto) Differential Comment PT INR D-Dimer VBG Lactic Acid Sodium 119 L* Potassium 5.2 H Chloride 87 L Carbon Dioxide 17 L Anion Gap 15.0 BUN 45 H Creatinine 1.8 H POC Creatinine 1.9 H GFR Calculation 31 Glucose 294 H Hemoglobin A1c Estim Average Glucose Calcium 8.5 L Phosphorus Magnesium Ferritin Total Bilirubin 3.5 H AST 62 H ALT 50 H Alkaline Phosphatase 194 H Ammonia 43 Total Creatine Kinase 101 Troponin T < 0.01 C-Reactive Protein NT-Pro-B Natriuret Pep 1220.0 H Total Protein 6.8 Albumin 3.1 L Globulin 3.7 Albumin/Globulin Ratio 0.8 L Lipase 28 Procalcitonin Urine Color Urine Appearance Urine pH Ur Specific [place] Urine Protein Urine Glucose (UA) Urine Ketones Urine Occult Blood Urine Nitrate Urine Bilirubin Urine Urobilinogen Ur Leukocyte Esterase Ur Culture Indicated? COVID-19 PCR SARS-CoV-2 (PCR) 08/07/04/20 07/04/20 20:53 20:24 20:24 WBC 7.1 RBC 4.44 Hgb 13.8 Hct 40.8 MCV 91.9 MCH 31.1 MCHC 33.8 RDW 19.9 H Plt Count 37 L* MPV Not Reportable Gran % 87.6 H Lymph % (Auto) 5.7 L [place] % (Auto) 5.9 Eos % (Auto) 0.4 Baso % (Auto) 0.4 Gran # 6.19 Lymph # (Auto) 0.40 L [place] # (Auto) 0.42 Eos # (Auto) 0.03 Baso # (Auto) 0.03 Differential Comment PT INR D-Dimer VBG Lactic Acid Sodium Potassium Chloride Carbon Dioxide Anion Gap BUN Creatinine POC Creatinine GFR Calculation Glucose Hemoglobin A1c 10.1 H Estim Average Glucose 243 Calcium Phosphorus Magnesium Ferritin Total Bilirubin AST ALT Alkaline Phosphatase Ammonia Total Creatine Kinase Troponin T C-Reactive Protein NT-Pro-B Natriuret Pep Total Protein Albumin Globulin Albumin/Globulin Ratio Lipase Procalcitonin 1.90 Urine Color Urine Appearance Urine pH Ur Specific [place] Urine Protein Urine Glucose (UA) Urine Ketones Urine Occult Blood Urine Nitrate Urine Bilirubin Urine Urobilinogen Ur Leukocyte Esterase Ur Culture Indicated? COVID-19 PCR SARS-CoV-2 (PCR) A/P Narrative A/P Narrative: 1. Acute hypoxic respiratory failure Pulse ox Oxygen therapy to keep SpO2 > 92%. Incentive spirometry 2. Bilateral pneumnonia, Covid 19? CT chest showed bilateral viral pneumonia COVID-19 PCR negative Repeated COVID-19 Blood culture and sputum culture MRSA screening -negative D-dimer -12.37, lactic acid 2.6, CRP 15.8, ferritin 295 Since patient has severe cirrhosis and thrombocytopenia, I will not like to start daily anticoagulation at this moment. Dexamethasone 6 mg twice daily Levaquin 750 mg IV every [address] of head negative PT OT 4. Rib fracture Pain management Incentive spirometry 5. AMS/hepatic encephalopathy 6. Liver cirrhosis with varices 7. Ascites 8. Hepatitis C Ultrasound and CT abd showed severe splenomegaly, liver cirrhosis and mild ascites. No liver mass. Ammonia Lactulose Rifaximin Discussed with GI Dr. Macedo's DENIAL MANAGEMENT REPRESENTATIVE who suggested to transfer pt to higher level care 9. CHF BNP Echocardiogram Intake and output Daily weight 10. Hyponatremia Fluid restriction Repeat sodium in the morning 11. COPD Inhalers 12. DM type 2, A1c 10.1 Diabetic diet Insulin sliding scale 13. Hyperkalemia 5.2 Discontinue spironolactone Laxix 20mg once kayexalate repeat k 14. CKD stage 3B Avoid nephrotoxic meds Repeat renal function in the morning 15. Thrombocytopenia, severe Severe splenomegaly No evidence of bleeding Monitor Repeat her platelets in the morning 16. UTI, was treated 2 days before admission, she was diagnosed with UTI. She was treated with unknown abx levaquin 17. DVT prophylaxis: levanox Time Spent With Patient Time: Total time spent is greater than 50% in coordination of care (as documented) at patient's floor/unit and/or counseling patient:
[2020-07-05] MEDS ORDERED: FUROSEMIDE 20 MG/2 ML VIAL IV ONE (09:43)
[2020-07-05] MEDS: INSULIN LISPRO 1 UNIT/0.01 ML UNIT SQ SCH ×2 (09:44→12:44)
[2020-07-05] MEDS ORDERED: CEPHALEXIN 500 MG CAPSULE PO SCH (10:00)
[2020-07-05] MEDS ORDERED: LEVOFLOXACIN 750 MG/150 ML BAG IV SCH (10:00)
--- NOTE | 2020-07-05 12:18 | Discharge Summary ---
Discharge Provider Provider Patient information: Note initiated : 07/05/20 at 12:18 pm Service Date, if different from initiated Date: [] Patient: Deloris Sarah 55 y/o F admitted on 07/05/20 for sternum pain and UTI. Chief Complaint: [] Date of admission: 07/05/20 00:27 Discharge date: 07/05/20 Primary care physician: Angy Holloway Consults: 07/04/20 22:52 Consult to Physician [CONS] Stat Comment: Consulting Provider: Kannan Grover Reason For Exam: Physician to Consult Discharge Meds Discharge Medications Home Medications Cyanocobalamin 1,000 mcg IM MONTHLY 08/26/15 [History Confirmed 07/04/20 Last Taken 02/15/19] amlodipine [Norvasc] 10 mg PO DAILY 08/26/15 [History Confirmed 07/04/20 Last Taken 02/15/19] gabapentin 100 mg PO BID 08/26/15 [History Confirmed 07/04/20 Last Taken 02/15/19] metoprolol tartrate 25 mg PO BID 08/26/15 [History Confirmed 07/04/20 Last Taken 02/15/19] omeprazole [Prilosec] 40 mg PO DAILY 08/26/15 [History Confirmed 07/04/20 Last Taken 02/15/19] potassium chloride [Klor-Con M20] 20 meq PO DAILY 08/26/15 [History Confirmed 07/04/20 Last Taken 02/15/19] Xifaxan 550 mg PO BID #60 tab 07/13/16 [Rx Confirmed 07/04/20 Last Taken 02/15/19] insulin lispro [HumaLOG] 1 unit SQ CONT 07/22/17 [History Confirmed 07/04/20 Last Taken 02/15/19] hydrocodone-acetaminophen 1 tab PO Q6HP PRN #20 tab 12/02/17 [Rx Confirmed 07/04/20 Last Taken 02/16/19 04:30] fluoxetine 40 mg PO DAILY 02/11/19 [History Confirmed 07/04/20 Last Taken 02/15/19] furosemide 40 mg PO BID 02/11/19 [History Confirmed 07/04/20 Last Taken 02/15/19] oxycodone 15 mg PO BID PRN 02/11/19 [History Confirmed 07/04/20 Last Taken 02/15/19] spironolactone 50 mg PO DAILY 02/11/19 [History Confirmed 07/04/20 Last Taken 02/15/19] hydrocodone-acetaminophen 1 tab PO Q4H PRN #14 tab 06/27/20 [Rx Confirmed 07/04/20 Last Taken Unknown] COURSE Hospital Course Hospital course: By problems: 1. Acute hypoxic respiratory failure Pulse ox Oxygen therapy to keep SpO2 > 92%. Incentive spirometry 2. Bilateral pneumnonia, Covid 19? CT chest showed bilateral viral pneumonia COVID-19 PCR negative Repeated COVID-19 Blood culture and sputum culture MRSA screening -negative D-dimer -12.37, lactic acid 2.6, CRP 15.8, ferritin 295 Since patient has severe cirrhosis and thrombocytopenia, I will not like to start daily anticoagulation at this moment. Dexamethasone 6 mg twice daily Levaquin 750 mg IV every [address] of head negative PT OT 4. Rib fracture Pain management Incentive spirometry 5. AMS/hepatic encephalopathy 6. Liver cirrhosis with varices 7. Ascites 8. Hepatitis C Ultrasound and CT abd showed severe splenomegaly, liver cirrhosis and mild ascites. No liver mass. Ammonia 59 Lactulose Rifaximin Discussed with GI Dr. Macedo's CORPSMAN who suggested to transfer pt to higher level care 9. CHF BNP Echocardiogram - pending Intake and output Daily weight 10. Hyponatremia Fluid restriction Repeat sodium in the morning 11. COPD Inhalers 12. DM type 2, A1c 10.1 Diabetic diet Insulin sliding scale 13. Hyperkalemia 5.2 Discontinue spironolactone Laxix 20mg once kayexalate repeat k 14. CKD stage 3B Avoid nephrotoxic meds Repeat renal function in the morning 15. Thrombocytopenia, severe 35 Severe splenomegaly No evidence of bleeding Monitor Repeat her platelets in the morning 16. UTI, was treated 2 days before admission, she was diagnosed with UTI. She was treated with unknown abx levaquin Discussed with Dr. Bourgeois who accepted the pt. Pt will be transferred to higher level hospital for further treatment and workup. Discharge diagnosis: Respiratory failure, PNA, liver cirrhosis Time Spent with Patient Time attestation: Total time spent providing and/or coordinating discharge services: EXAM Constitutional Vitals: Temp Pulse Resp BP Pulse Ox 97.4 F 93 H 24 H 129/61 99 07/05/20 12:01 07/05/20 12:01 07/05/20 12:01 07/05/20 12:01 07/05/20 12:01 Additional findings Additional findings: General -lethargic, somnolence Eyes - PERRLA, EOM intact ENT no rhinorrhea, no noticeable or palpable swelling, no redness or rash around throat or on face Neck supple, no JVD, no thyromegaly Respiratory: Lungs -diminished breathing sound, no wheezing or crackles. Cardiovascular - RRR no m/r/g, GI - Normal bowel sounds, no distended, soft. Extremeties - No cyanosis or clubbing Hemo/lymphatic/immune no lymphadenopathy Neurological lethargic, no focal neurological deficits. Psychiatry flat affect Discharge Data Data Completed and Pending Labs on day of discharge: Labs from last 24 hours 07/05/20 07/05/20 07/05/20 10:20 10:08 10:08 WBC RBC Hgb Hct MCV MCH MCHC RDW Plt Count MPV Gran % Lymph % (Auto) [place] % (Auto) Eos % (Auto) Baso % (Auto) Gran # Lymph # (Auto) [place] # (Auto) Eos # (Auto) Baso # (Auto) Differential Comment PT INR D-Dimer VBG Lactic Acid 2.8 H Sodium Potassium Chloride Carbon Dioxide Anion Gap BUN Creatinine POC Creatinine GFR Calculation Glucose Hemoglobin A1c Estim Average Glucose Calcium Phosphorus Magnesium Ferritin Total Bilirubin AST ALT Alkaline Phosphatase Ammonia 59 H Total Creatine Kinase Troponin T C-Reactive Protein NT-Pro-B Natriuret Pep 2774.0 H Total Protein Albumin Globulin Albumin/Globulin Ratio Lipase Procalcitonin Urine Color Urine Appearance Urine pH Ur Specific [place] Urine Protein Urine Glucose (UA) Urine Ketones Urine Occult Blood Urine Nitrate Urine Bilirubin Urine Urobilinogen Ur Leukocyte Esterase Ur Culture Indicated? COVID-19 PCR SARS-CoV-2 (PCR) 07/05/20 07/05/20 07/05/20 05:10 05:10 05:10 WBC RBC Hgb Hct MCV MCH MCHC RDW Plt Count MPV Gran % Lymph % (Auto) [place] % (Auto) Eos % (Auto) Baso % (Auto) Gran # Lymph # (Auto) [place] # (Auto) Eos # (Auto) Baso # (Auto) Differential Comment PT INR D-Dimer 12.37 H VBG Lactic Acid 2.6 H Sodium Potassium Chloride Carbon Dioxide Anion Gap BUN Creatinine POC Creatinine GFR Calculation Glucose Hemoglobin A1c Estim Average Glucose Calcium Phosphorus Magnesium Ferritin 295.9 H Total Bilirubin AST ALT Alkaline Phosphatase Ammonia Total Creatine Kinase Troponin T C-Reactive Protein 15.8 H NT-Pro-B Natriuret Pep Total Protein Albumin Globulin Albumin/Globulin Ratio Lipase Procalcitonin Urine Color Urine Appearance Urine pH Ur Specific [place] Urine Protein Urine Glucose (UA) Urine Ketones Urine Occult Blood Urine Nitrate Urine Bilirubin Urine Urobilinogen Ur Leukocyte Esterase Ur Culture Indicated? COVID-19 PCR SARS-CoV-2 (PCR) 07/05/20 07/05/20 07/05/20 05:10 05:10 02:15 WBC 6.2 RBC 3.93 Hgb 12.0 Hct 35.4 MCV 90.1 MCH 30.5 MCHC 33.9 RDW 19.9 H Plt Count 35 L* MPV TNP Gran % 86.9 H Lymph % (Auto) 3.7 L [place] % (Auto) 8.9 Eos % (Auto) 0.2 Baso % (Auto) 0.3 Gran # 5.40 Lymph # (Auto) 0.23 L [place] # (Auto) 0.55 Eos # (Auto) 0.01 Baso # (Auto) 0.02 Differential Comment Comment PT INR D-Dimer VBG Lactic Acid Sodium 123 L Potassium 5.2 H Chloride 88 L Carbon Dioxide 19 L Anion Gap 16.0 BUN 46 H Creatinine 1.7 H POC Creatinine GFR Calculation 33 Glucose 297 H Hemoglobin A1c Estim Average Glucose Calcium 8.1 L Phosphorus 3.5 Magnesium 1.6 Ferritin Total Bilirubin 3.5 H AST 50 H ALT 39 Alkaline Phosphatase 129 H Ammonia Total Creatine Kinase Troponin T C-Reactive Protein NT-Pro-B Natriuret Pep Total Protein 5.7 L Albumin 2.6 L Globulin 3.1 Albumin/Globulin Ratio 0.8 L Lipase Procalcitonin Urine Color Urine Appearance Urine pH Ur Specific [place] Urine Protein Urine Glucose (UA) Urine Ketones Urine Occult Blood Urine Nitrate Urine Bilirubin Urine Urobilinogen Ur Leukocyte Esterase Ur Culture Indicated? COVID-19 PCR SARS-CoV-2 (PCR) Pending 07/05/20 07/04/20 07/04/20 02:15 21:40 20:53 WBC RBC Hgb Hct MCV MCH MCHC RDW Plt Count MPV Gran % Lymph % (Auto) [place] % (Auto) Eos % (Auto) Baso % (Auto) Gran # Lymph # (Auto) [place] # (Auto) Eos # (Auto) Baso # (Auto) Differential Comment PT 17.5 H INR 1.4 H D-Dimer VBG Lactic Acid Sodium Potassium Chloride Carbon Dioxide Anion Gap BUN Creatinine POC Creatinine GFR Calculation Glucose Hemoglobin A1c Estim Average Glucose Calcium Phosphorus Magnesium Ferritin Total Bilirubin AST ALT Alkaline Phosphatase Ammonia Total Creatine Kinase Troponin T C-Reactive Protein NT-Pro-B Natriuret Pep Total Protein Albumin Globulin Albumin/Globulin Ratio Lipase Procalcitonin Urine Color Jessica Urine Appearance Clear Urine pH 5.0 Ur Specific [place] 1.017 Urine Protein Neg Urine Glucose (UA) 50 A Urine Ketones Neg Urine Occult Blood Neg Urine Nitrate Neg Urine Bilirubin Neg Urine Urobilinogen 2.0 A Ur Leukocyte Esterase Neg Ur Culture Indicated? No COVID-19 PCR Covid-19 negative SARS-CoV-2 (PCR) 07/04/20 07/04/20 07/04/20 20:53 20:53 20:53 WBC RBC Hgb Hct MCV MCH MCHC RDW Plt Count MPV Gran % Lymph % (Auto) [place] % (Auto) Eos % (Auto) Baso % (Auto) Gran # Lymph # (Auto) [place] # (Auto) Eos # (Auto) Baso # (Auto) Differential Comment PT INR D-Dimer VBG Lactic Acid Sodium 119 L* Potassium 5.2 H Chloride 87 L Carbon Dioxide 17 L Anion Gap 15.0 BUN 45 H Creatinine 1.8 H POC Creatinine 1.9 H GFR Calculation 31 Glucose 294 H Hemoglobin A1c Estim Average Glucose Calcium 8.5 L Phosphorus Magnesium Ferritin Total Bilirubin 3.5 H AST 62 H ALT 50 H Alkaline Phosphatase 194 H Ammonia 43 Total Creatine Kinase 101 Troponin T < 0.01 C-Reactive Protein NT-Pro-B Natriuret Pep 1220.0 H Total Protein 6.8 Albumin 3.1 L Globulin 3.7 Albumin/Globulin Ratio 0.8 L Lipase 28 Procalcitonin Urine Color Urine Appearance Urine pH Ur Specific [place] Urine Protein Urine Glucose (UA) Urine Ketones Urine Occult Blood Urine Nitrate Urine Bilirubin Urine Urobilinogen Ur Leukocyte Esterase Ur Culture Indicated? COVID-19 PCR SARS-CoV-2 (PCR) 07/04/20 07/04/20 07/04/20 20:53 20:24 20:24 WBC 7.1 RBC 4.44 Hgb 13.8 Hct 40.8 MCV 91.9 MCH 31.1 MCHC 33.8 RDW 19.9 H Plt Count 37 L* MPV Not Reportable Gran % 87.6 H Lymph % (Auto) 5.7 L [place] % (Auto) 5.9 Eos % (Auto) 0.4 Baso % (Auto) 0.4 Gran # 6.19 Lymph # (Auto) 0.40 L [place] # (Auto) 0.42 Eos # (Auto) 0.03 Baso # (Auto) 0.03 Differential Comment PT INR D-Dimer VBG Lactic Acid Sodium Potassium Chloride Carbon Dioxide Anion Gap BUN Creatinine POC Creatinine GFR Calculation Glucose Hemoglobin A1c 10.1 H Estim Average Glucose 243 Calcium Phosphorus Magnesium Ferritin Total Bilirubin AST ALT Alkaline Phosphatase Ammonia Total Creatine Kinase Troponin T C-Reactive Protein NT-Pro-B Natriuret Pep Total Protein Albumin Globulin Albumin/Globulin Ratio Lipase Procalcitonin 1.90 Urine Color Urine Appearance Urine pH Ur Specific [place] Urine Protein Urine Glucose (UA) Urine Ketones Urine Occult Blood Urine Nitrate Urine Bilirubin Urine Urobilinogen Ur Leukocyte Esterase Ur Culture Indicated? COVID-19 PCR SARS-CoV-2 (PCR) Discharge Plan Patient/Caregiver Discharge Instructions Prescriptions: No Action omeprazole [Prilosec] 40 MG capsule,delayed release(DR/EC) 40 mg PO DAILY RF: 0 potassium chloride [Klor-Con M20] 20 MEQ tablet,ER particles/crystals 20 meq PO DAILY RF: 0 amlodipine [Norvasc] 10 MG tablet 10 mg PO DAILY RF: 0 metoprolol tartrate 50 MG tablet 25 mg PO BID RF: 0 gabapentin 100 MG capsule 100 mg PO BID RF: 0 Cyanocobalamin 1,000 mcg IM MONTHLY RF: 0 Xifaxan 200 MG tablet 550 mg PO BID Qty: 60 RF: 0 insulin lispro [Humalog U-100 Insulin] 1 UNIT/0.01 ML solution 1 unit SQ CONT RF: 0 hydrocodone-acetaminophen 1 TAB tablet 1 tab PO Q6HP PRN (Reason: Pain) Qty: 20 RF: 0 oxycodone 15 MG tablet,oral only,ext.rel.12 hr 15 mg PO BID PRN (Reason: Pain) RF: 0 furosemide 40 MG tablet 40 mg PO BID RF: 0 fluoxetine 40 MG capsule 40 mg PO DAILY RF: 0 spironolactone 50 MG tablet 50 mg PO DAILY RF: 0 hydrocodone-acetaminophen 5-325 mg tablet 1 tab PO Q4H PRN (Reason: pain) Qty: 14 RF: 0 Follow Up Plan Follow up with: Angy Holloway MD [Primary Care Provider] - Patient Disposition: [facility] Prognosis: Fair Discharge Orders: Discharge Order (Routine); Ordered 07/05/20 Ordered By: Kannan Grover
[2020-07-05] MEDS ORDERED: DEXAMETHASONE 4 MG/ML VIAL IV SCH (21:00)
[2020-07-19] MEDS ORDERED: CYANOCOBALAMIN 1,000 MCG/ML VIAL IM SCH (09:00)
== END 2020-07-05 13:50 | disposition short-term general hospital (02) | DRG 189 ==
LOC: ED 20:02 → ICU 07-05 00:27
PROVIDERS: ADMIT Internal Medicine; ATTEND Internal Medicine